=== PATIENT | female | born 1945 | race Caucasian/White ===

== ENCOUNTER 2022-09-12 08:29 | Outpatient (CLI) | payer MEDICARE, BC | END 2022-09-12 08:30 | disposition home or self-care (01) | LOC: CSHMAMMO 08:29 | PROVIDERS: ATTEND Family Medicine | DX: Z12.31 Encounter for screening mammogram for malignant neoplasm of breast (principal); Z13.820 Encounter for screening for osteoporosis; M81.0 Age-related osteoporosis without current pathological fracture; Z78.0 Asymptomatic menopausal state; Z91.89 Other specified personal risk factors, not elsewhere classified | CPT/HCPCS: 77063; 77067; 77080 ==

== ENCOUNTER 2023-08-08 13:48 | Outpatient (CLI) | payer MEDICARE | END 2023-08-08 13:49 | disposition home or self-care (01) | LOC: CSHMAMMO 13:48 | PROVIDERS: ATTEND Internal Medicine | DX: N63.11 Unspecified lump in the right breast, upper outer quadrant (principal) | CPT/HCPCS: 76642; 77066; G0279 ==